=== PATIENT | female | born 1980 | race Caucasian/White ===

== ENCOUNTER 2021-11-15 05:46 | Emergency (ER) | payer BC, MEDICAID ==
[~2021-11-15] VITALS: Ht 167.6 cm; Wt 90.0 kg
[2021-11-15 06:05] VITALS: BP 136/89
== END 2021-11-15 06:45 | disposition home or self-care (01) ==
LOC: ER 05:46
DX: Z00.00 Encounter for general adult medical examination without abnormal findings (principal); Z85.9 Personal history of malignant neoplasm, unspecified
CPT/HCPCS: 99283